=== PATIENT | female | born 1950 | race Two or more races ===

== ENCOUNTER 2020-09-10 | Outpatient (CLI) | payer OTHER | END 2020-09-10 08:51 | disposition home or self-care (01) | LOC: PPH VACUNA | PROVIDERS: ATTEND Emergency Medicine Pediatric Emergency Medicine | DX: Z23 Encounter for immunization (principal) ==

== ENCOUNTER 2021-05-22 07:00 | Outpatient (CLI) | payer OTHER | END 2021-05-22 07:15 | disposition home or self-care (01) | LOC: PPH VACUNA 07:00 | PROVIDERS: ATTEND Emergency Medicine Pediatric Emergency Medicine | DX: Z23 Encounter for immunization (principal) ==